=== PATIENT | male | born 1950 | race Caucasian/White ===

== ENCOUNTER 2017-07-30 05:44 | Day surgery (SDC) | payer MEDICAID ==
[~2017-07-30] VITALS: Ht 172.7 cm; Wt 74.8 kg
[2017-07-30] MEDS ORDERED: BACITRACIN 50,000 UNITS/VIAL ONE (07:05)
[2017-07-30] MEDS ORDERED: BUPIVACAINE HCL/EPINEPHRINE/PF 0.5%/0.0005 10ML ONE ×2 (07:05→08:58)
[2017-07-30] MEDS ORDERED: BUPIVACAINE HCL 0.5% (5MG/ML) 50ML ONE (07:05)
[2017-07-30] MEDS ORDERED: BACITRACIN ZINC 15GM TUBE TOP ONE (07:05)
[2017-07-30] MEDS ORDERED: NORMAL SALINE 0.9% 10 ML SYR ONE ×2 (07:05→07:06)
[2017-07-30] MEDS ORDERED: PROPOFOL 200MG/20ML VIAL IV ONE (07:29)
[2017-07-30] MEDS ORDERED: SKIN ADHESIVE 0.7 GM EA TOP ONE (07:50)
[2017-07-30] MEDS ORDERED: MIDAZOLAM HCL 2 MG/2 ML VIAL ONE (07:57)
[2017-07-30] MEDS ORDERED: CEFAZOLIN SODIUM 1000MG/VIAL ONE (08:13)
[2017-07-30] MEDS ORDERED: LIDOCAINE HCL/PF 1% 10 MG/ML 5ML VIAL ONE (08:13)
[2017-07-30] MEDS ORDERED: FENTANYL CITRATE/PF 50MCG/ML 2ML VIAL ONE (08:20)
[2017-07-30] MEDS ORDERED: ONDANSETRON HCL 4MG/2ML VIAL IV NR (09:30)
[2017-07-30] MEDS ORDERED: FENTANYL CITRATE/PF 50MCG/ML 2ML VIAL IV NR (09:30)
[2017-07-30] MEDS ORDERED: HYDROCODONE/ACETAMINOPHEN 10/325MG TABLET PO PRN (09:30)
== END 2017-07-30 11:15 | disposition home or self-care (01) ==
LOC: OR 05:44
PROVIDERS: ATTEND Orthopaedic Surgery
DX: D17.22 Benign lipomatous neoplasm of skin and subcutaneous tissue of left arm (principal); Z79.899 Other long term (current) drug therapy
CPT/HCPCS: 23071; 88304; A4216; J0171; J0690; J2250; J3010; J3490; J7120; J2704